=== PATIENT | male | born 1970 | race Caucasian/White ===

== ENCOUNTER → 2017-10-15 | Day surgery (SDC) | payer SELFPAY ==
[2017-10-10 08:34] VITALS: BMI 36.0
[~2017-10-15] VITALS: Ht 175.3 cm; Wt 110.5 kg
[~2017-10-15] MED LIST: ASPI-319 PO; ATOR-24 PO; ATROPINE SULFATE 0.1 MG/ML 5ML SYR IV PRN; BUPIVACAINE 0.5 % 5 MG/1 ML MPF 30ML VIAL ONE; CEFAZOLIN 2000MG IV PUSH 15 ML IV SCH; DEXAMETHASONE SOD INJ 4 MG/ML VIAL ONE; EpHEDrine SULFATE INJ 50 MG/ML AMP IV PRN; FENTANYL CITRATE INJ 50 MCG/1 ML 2 ML VIAL IV PRN; FENTANYL CITRATE INJ 50 MCG/1 ML 2 ML VIAL ONE; FEXO1TAB46 PO; FLUT50SP45; GLYCOPYRROLATE INJ 0.2 MG/ML VIAL ONE; LACTATED RINGER'S 1000ML 1,000 ML IV SCH; MELO-84 PO; MIDAZOLAM HCL 1 MG/ML 2ML VIAL ONE; MoRPHine SULFATE 4 MG/ML 1 ML CARP\\VIAL IV PRN; NEOSTIGMINE METHYLSULFATE 5 MG/5 ML SYR ONE; ONDANSETRON INJ 2 MG/ML 2 ML VIAL IV PRN; ONDANSETRON INJ 2 MG/ML 2 ML VIAL ONE; OXYCODONE/ACETAMINOPHEN 5-325 TAB PO PRN; PRLSR20 PO; PROMETHAZINE HCL INJ 6.25 MG in SODIUM CHLORIDE 0.9% 50ML 50 ML IV PRN; ROCURONIUM BROMIDE 10 MG/ML 5 ML VIAL ONE; SODIUM CHLORIDE 0.9% 1000ML 1,000 ML IV SCH; SUCCINYLCHOLINE CHLORIDE 20 MG/ML 10 ML VIAL IV ONE; TRAZ100T29 PO; VENL75CA73 PO
[2017-10-15 05:42] VITALS: BP 115/74; PULSE 58; TEMP 36.5; O2SAT 96; Ht 175.3 cm; Wt 110.5 kg
--- NOTE | 2017-10-15 06:50 | History & Physical Bridge Note ---
H&P Re-Evaluation Bridge Note: I have examined the patient, reviewed the History & Physical and in the interval since the performance of the History & Physical I have noted the following changes of clinical significance: No changes noted
--- NOTE | 2017-10-15 08:13 | [facility] Post Operative Brief Note ---
Immediate Operative Summary Operative Date Oct 15, 2017. Pre-Operative Diagnosis Umbilical hernia Post-Operative Diagnosis Umbilical hernia Procedure(s) Performed Repair of umbilical hernia, with use of mesh Surgeon Dr. Hauser Electrical Troubleshooter Surgeon(s) Meera Newby PA-C Estimated Blood Loss 5 ml Findings Consistent with Post-Op Diagnosis Specimens none Drains None Anesthesia Type General Complication(s) none Disposition Disposition: Recovery Room / PACU
--- NOTE | 2017-10-15 08:16 | Discharge Instructions ---
Discharge Instructions Date of Service Oct 15, 2017. Admission Reason for Admission: Umbilical Hernia Discharge Discharge Diagnosis / Problem: Umbilical hernia Discharge Goals Goal(s): Decrease discomfort Activity Recommendations Activity Limitations: per Instructions/Follow-up section Lifting Limitations: no more than 10 pounds (for 6 weeks) Shower/Bathe: tomorrow (shower only) ACTIVITY RECOMMENDATIONS: * Walk as much as possible. * No heavy lifting (>10 lbs.) for 6 weeks. SPECIAL CARE INSTRUCTIONS: * Ice to hernia repair site on and off until bedtime tonight. * May shower in 24 hours. Let water run over area and pat dry. * Remove plastic dressing and cotton ball on Sunday * Leave steri strips on for one week. * Call the surgeon's office with any questions or concerns - (ex. temperature higher than 101 degrees F, excessive bleeding or pain). MEDICATIONS: Resume previous medications unless instructed otherwise by your surgeon. * Ibuprofen 600 mg every 6 hours with food * Percocet 1 every 4 hours, as needed for pain FOLLOW UP VISIT: If not already scheduled, please call the office to schedule a two week follow- up appointment. Office number . Current Hospital Diet Patient's current hospital diet: Discharge Diet Recommended Diet: Regular Diet Procedures Procedures Performed: Repair of umbilical hernia, with use of mesh Pending Studies Studies pending at discharge: no Medical Emergencies . Who to Call and When: Medical Emergencies: If at any time you feel your situation is an emergency, please call 911 immediately. . Non-Emergent Contact Non-Emergency issues call your: Primary Care Provider, Surgeon Call Non-Emergent contact if: your pain is worsening, your pain is unusual for you, wound has increased redness . "Provider Documentation" section prepared by Tate Hauser. .
--- NOTE | 2017-10-15 08:37 | OPERATIVE REPORT ---
DATE OF OPERATION: 10/15/2017 PREOPERATIVE DIAGNOSIS: Umbilical hernia. POSTOPERATIVE DIAGNOSIS: Same. PROCEDURE: Repair of umbilical hernia. SURGEON: Tate Hauser MD WARP SCOURING VAT TENDER: Meera Newby PA-C FINDINGS: The patient had a single defect measured about 1.3 cm. There was omental fat within the hernia, but no bowel. TECHNIQUE: The patient was given a general anesthetic and the area was prepped and draped in usual sterile fashion. A subumbilical incision was made transversely, carried down through the subcutaneous tissue. The hernia sac was easily identified, away from the surrounding tissues on the left down the right and then peeled off the overlying dermis of the umbilical skin and away from the tissue superiorly. This dissection was then carried down until the entire circumference of the defect was identified. Beginning on the left, the fascial edge was elevated and the hernia sac was away. It became difficult to reduce, so I opened the sac and reduced the omentum back into the abdomen, then allowed for better visualization of the space between the fascia and the peritoneum. The space was established towards the left and superiorly, then towards the right. It was more difficult inferiorly as it was somewhat adherent. I had to work to dissect it away from the posterior surface of the fascia inferiorly, but eventually was able to accomplish that. The opening that was created in the hernia sac was then closed with a running 3-0 Vicryl. A piece of medium C-QUR V-patch mesh was placed in a preperitoneal retrofascial position. The struts were secured to the edges of the fascia with 0 PDS and the fascial defect was closed with a #1 PDS. The area was inspected for bleeding, none was seen. The skin was closed with 4-0 Monocryl in a running subcuticular fashion. The skin and subcutaneous tissue were anesthetized with 0.5% Marcaine. The skin was cleansed, dried, benzoin placed, Steri-Strips applied. Cotton ball was placed into the umbilicus and an Op-Site was placed over it. The estimated blood loss was 5 mL. Sponge, needle and instrument counts were correct prior to closure. The patient tolerated the surgical procedure without complication and was transferred to recovery. I attest to the content of the Intraoperative Record and any orders documented therein. Any exception s are noted below.
[2017-10-15 09:10] VITALS: BP 93/60; PULSE 63; TEMP 36.5; O2SAT 94
--- NOTE | 2017-10-15 09:19 | Anesthesiology Progress Note ---
Anesthesia Post Op Note Date & Time Oct 15, 2017 at 09:19 Vital Signs Pain Intensity: 0 Vital Signs Past 12 Hours Date Time Temp Pulse Resp B/P (MAP) Pulse Ox O2 Delivery O2 Flow Rate FiO2 10/15/17 09:05 36.7 70 12 116/64 96 Room Air 10/15/17 08:55 75 16 120/65 93 Room Air 10/15/17 08:45 73 18 124/65 96 Oxymask 10 10/15/17 08:35 76 21 142/82 93 Oxymask 10 10/15/17 08:26 36.6 85 14 147/83 94 Oxymask 10 10/15/17 05:42 36.5 58 16 115/74 (88) 96 Room Air Notes Mental Status: alert / awake / arousable, participated in evaluation Pt Amnestic to Procedure: Yes Nausea / Vomiting: adequately controlled Pain: adequately controlled Airway Patency, RR, SpO2: stable & adequate BP & HR: stable & adequate Hydration State: stable & adequate Anesthetic Complications: no major complications apparent
[2017-10-15 09:40] VITALS: BP 114/53; PULSE 64; O2SAT 97
[2017-10-15 09:55] VITALS: BP 136/74; PULSE 74; TEMP 36.3; O2SAT 95
== END | disposition home or self-care (01) ==
LOC: C.ACU 05:14
PROVIDERS: ATTEND Surgery
DX: K42.9 Umbilical hernia without obstruction or gangrene (principal); G47.33 Obstructive sleep apnea (adult) (pediatric); Z88.1 Allergy status to other antibiotic agents; Z79.82 Long term (current) use of aspirin; Z79.899 Other long term (current) drug therapy